=== PATIENT | female | born 1990 | race Caucasian/White ===

== ENCOUNTER 2016-12-30 03:05 | Emergency (ER) | payer MEDICAID ==
[~2016-12-30] VITALS: Ht 170.2 cm; Wt 51.4 kg
[~2016-12-30 03:05] MED LIST: CLON1 PO; PROZ20CA11 PO
[2016-12-30 03:12] VITALS: BP 120/82; PULSE 102; RESP 20; TEMP 97.6; O2SAT 100
--- NOTE | 2016-12-30 03:56 | PD ---
HPI Chief Complaint: Musculoskeletal Complaint Time Seen by Provider: 03:51 Travel History International Travel<30 days: No Contact w/Intl Traveler<30days: No Traveled to known affect area: No History of Present Illness HPI This is a 26-year-old female presents emergency department for evaluation of sternal chest pain started approximately 02:00. Patient states his anxiety but the symptoms seems somewhat worse and she did have some mild shortness of breath. . States the pain gets worse when she takes deep breaths versus 4. States symptoms are moderate in severity. Denies any fever. Denies abdominal pain nausea vomiting diarrhea PFSH Past Medical History Asthma: Yes Anxiety: Yes Depression: Yes Cancer: Yes (OVARIAN, BILATERAL BREAST) Cardiovascular Problems: No Diabetes: No Diminished Hearing: No Endocrine: No Gastrointestinal Disorders: No Genitourinary: No Hepatitis: No Hiatal Hernia: No Hypertension: No Immune Disorder: No Musculoskeletal: Yes (CHRONIC BACK PAIN, PAIN MANAGEMENT) Neurologic: No Psychiatric: No Reproductive: No Respiratory: Yes (asthma) Integumentary: Yes (BENIGN TUMORS REMOVED FROM RIGHT INNER THIGH (06/2015)) Immunizations Current: Yes Seizures: Yes Thyroid Disease: No Ulcer: Yes (GASTRIC) Tetanus Vaccination: < 5 Years Influenza Vaccination: No (ALLERGY) ?: Not Menopausal: Yes : 2 Para: 1 Miscarriage: 1 : 0 Ovarian Cysts: Yes Tubal Ligation: Yes (R OVARY, ) Past Surgical History Abdominal Surgery: Yes (UMB. HERNIA REPAIR CHILD) AICD: No Genitourinary Surgery: Yes Gynecologic Surgery: Yes (HYSTERECTOMY) Hysterectomy: Yes Joint Replacement: No Mastectomy: Yes (BILATERAL) Oral Surgery: Yes (WISDOM TEETH) Pacemaker: No Thoracic Surgery: Yes (BILAT. MASTECTOMY) Other Surgery: Yes (HERNIA) Social History Alcohol Use: No Tobacco Use: Yes (07/24 PPD) Substance Use: No Allergies-Medications (Allergen,Severity, Reaction): Coded Allergies: Flu Vaccine (Verified Allergy, Severe, Anaphylaxis, 12/30/16) Penicillin (Verified Allergy, Severe, ANAPHYLAXIS, 12/30/16) Vicodin (Verified Allergy, Severe, PATIENT STATES THEY ARE NOT ALLERGIC, ) PATIENT STATES THEY ARE NOT ALLERGIC Reported Meds & Prescriptions Reported Meds & Active Scripts Active Reported Prozac (Fluoxetine HCl) 20 Mg Cap 20 Mg PO DAILY Klonopin (Clonazepam) 1 Mg Tab 1 Mg PO BID Review of Systems Except as stated in HPI: all other systems reviewed are Neg Physical Exam Narrative GENERAL: Well-developed well-nourished no apparent distress SKIN: no rash no wound HEAD: Atraumatic. Normocephalic. EYES: Pupils equal and round. No scleral icterus. No injection or drainage. ENT: No nasal bleeding or discharge. Mucous membranes pink and moist. NECK: Trachea midline. No JVD. CARDIOVASCULAR: Regular rhythm. No murmur appreciated. Reproducible chest pain to the middle of the chest. 2+ bilateral equal pulses in all 4 extremity' s. Minimal tachycardic. RESPIRATORY: No accessory muscle use. Clear to auscultation. Breath sounds equal bilaterally. GASTROINTESTINAL: Abdomen soft, non-tender, nondistended. Hepatic and splenic margins not palpable. MUSCULOSKELETAL: No obvious deformities. No clubbing. No cyanosis. No edema. NEUROLOGICAL: Awake and alert. No obvious cranial nerve deficits. Motor grossly within normal limits. Normal speech. PSYCHIATRIC: Appropriate mood and affect; insight and judgment normal. Data Data Last Documented VS Vital Signs Date Time Temp Pulse Resp B/P Pulse Ox O2 Delivery O2 Flow Rate FiO2 12/30/16 05:10 78 16 108/69 100 12/30/16 03:12 97.6 Orders Electrocardiogram (12/30/16 03:51) Complete Blood Count With Diff (12/30/16 03:51) Comprehensive Metabolic Panel (12/30/16 03:51) D-Dimer (12/30/16 03:51) Chest, Single Ap (12/30/16 03:51) Ecg Monitoring (12/30/16 03:51) Iv Access Insert/Monitor (12/30/16 03:51) Oximetry (12/30/16 03:51) Oxygen Administration (12/30/16 03:51) Sodium Chloride 0.9% Flush (Ns Flush) (12/30/16 04:00) Acetamin-Hydrocod 325-5 Mg ([place] 5-325 (12/30/16 04:00) Potassium Chloride (Kcl) (12/30/16 05:00) Labs Laboratory Tests Test 12/30/16 04:05 White Blood Count 8.7 TH/MM3 Red Blood Count 4.61 MIL/MM3 Hemoglobin 14.5 GM/DL Hematocrit 42.5 % Mean Corpuscular Volume 92.0 FL Mean Corpuscular Hemoglobin 31.4 PG Mean Corpuscular Hemoglobin 34.2 % Concent Red Cell Distribution Width 11.5 % Platelet Count 245 TH/MM3 Mean Platelet Volume 8.1 FL Neutrophils (%) (Auto) 59.6 % Lymphocytes (%) (Auto) 31.5 % Monocytes (%) (Auto) 4.1 % Eosinophils (%) (Auto) 1.5 % Basophils (%) (Auto) 3.3 % Neutrophils # (Auto) 5.2 TH/MM3 Lymphocytes # (Auto) 2.7 TH/MM3 Monocytes # (Auto) 0.4 TH/MM3 Eosinophils # (Auto) 0.1 TH/MM3 Basophils # (Auto) 0.3 TH/MM3 CBC Comment DIFF FINAL Differential Comment D-Dimer Quantitative (PE/DVT) 0.25 MG/L FEU Sodium Level 141 MEQ/L Potassium Level 3.1 MEQ/L Chloride Level 107 MEQ/L Carbon Dioxide Level 23.8 MEQ/L Anion Gap 10 MEQ/L Blood Urea Nitrogen 12 MG/DL Creatinine 0.74 MG/DL Estimat Glomerular Filtration 93 ML/MIN Rate Random Glucose 89 MG/DL Calcium Level 9.4 MG/DL Total Bilirubin 0.6 MG/DL Aspartate Amino Transf 16 U/L (AST/SGOT) Alanine Aminotransferase 18 U/L (ALT/SGPT) Alkaline Phosphatase 78 U/L Total Protein 7.4 GM/DL Albumin 4.3 GM/DL [facility] Medical Decision Making Medical Screen Exam Complete: Yes Emergency Medical Condition: Yes Interpretation(s) EKG shows normal sinus rhythm normal axis normal R-wave progression. Rate of 100. Intervals otherwise within normal limits. No concerning ST segment changes. This normal EKG. Differential Diagnosis Anxiety, PE seems unlikely, ACS seems highly unlikely, pneumonia. Narrative Course Patient was roomed emergency department, given pain medicine, initial workup including EKG d-dimer CBC and CMP are reassuring. Discussed with the patient that she seems to be a healthy young lady with panic disorder. No indication that there is part of lung disorder in this patient. She is stable for discharge and follow-up with her primary care physician. Diagnosis Primary Impression: Anxiety Additional Impression: Atypical chest pain Disposition: 01 DISCHARGE HOME Condition: Stable Amrik Ragland MD Dec 30, 2016 03:56
[2016-12-30] MEDS ORDERED: ACETAMINOPHEN/HYDROcodone 325 MG/5 MG TAB PO ONE (04:00)
[2016-12-30] MEDS ORDERED: SODIUM CHLORIDE 0.9% FLUSH 10 ML FLUSH IVF PRN (04:00)
[2016-12-30 04:20] LABS: AUTOMATED NEUTROPHIL # 5.2 TH/MM3 (1.8-7.7); BASOPHIL # 0.3 TH/MM3 (0-0.2); BASOPHIL % 3.3 % (0.0-2.0); EOSINOPHIL # 0.1 TH/MM3 (0-0.4); EOSINOPHIL % 1.5 % (0.0-4.0); HEMATOCRIT 42.5 % (35.0-46.0); HEMO FLAGS DIFF FINAL; LYMPH % 31.5 % (9.0-44.0); LYMPHOCYTE # 2.7 TH/MM3 (1.0-4.8); MEAN CORPUSCULAR HEMOGLOBIN 31.4 PG (27.0-34.0); MEAN CORPUSCULAR HGB CONC 34.2 % (32.0-36.0); MONO % 4.1 % (0.0-8.0); NEUT % 59.6 % (16.0-70.0); PLATELET COUNT 245 TH/MM3 (150-450); RED BLOOD COUNT 4.61 MIL/MM3 (4.00-5.30); RED CELL DISTRIBUTION WIDTH 11.5 % (11.6-17.2); WHITE BLOOD COUNT 8.7 TH/MM3 (4.0-11.0)
[2016-12-30 04:29] LABS: CHLORIDE 107 MEQ/L (98-107); POTASSIUM 3.1 MEQ/L (3.5-5.1); SODIUM (NA) 141 MEQ/L (136-145)
[2016-12-30 04:33] LABS: ANION GAP 10 MEQ/L (5-15); BICARBONATE 23.8 MEQ/L (21.0-32.0); BLOOD UREA NITROGEN 12 MG/DL (7-18)
[2016-12-30 04:36] LABS: ALT (GPT) 18 U/L (10-53); AST (GOT) 16 U/L (15-37); GLOMERULAR FILTRATION RATE 93 ML/MIN (>89)
--- NOTE | 2016-12-30 04:36 | RADHPO ---
EXAM DATE/TIME: 12/30/2016 03:55 [facility] COMPARISON: CHEST SINGLE AP, July 17, 2016, 21:21. INDICATIONS : Chest pain. MEDICAL HISTORY : Chronic obstructive pulmonary disease. Asthma SURGICAL HISTORY : Hysterectomy. Mastectomy, bilateral, Umbilical hernia repair ENCOUNTER: Initial ACUITY: 1 day PAIN SCORE: 9/10 LOCATION: Bilateral chest FINDINGS: 2 AP erect portable views of the chest demonstrates the lungs to be symmetrically aerated without rao dence of mass, infiltrate or effusion. The cardiomediastinal contours are unremarkable. Osseous str uctures are intact. CONCLUSION: No acute disease. Joao Pereira MD on December 30, 2016 at 4:34 Board Certified Radiologist. This report was verified electronically.
[2016-12-30 04:38] LABS: TOTAL BILIRUBIN ADULT 0.6 MG/DL (0.2-1.0)
[2016-12-30 04:39] LABS: ALKALINE PHOSPHATASE 78 U/L (45-117)
[2016-12-30] MEDS ORDERED: POTASSIUM CHLORIDE 20 MEQ CONTROLLED RELEASE TAB PO ONE (05:00)
[2016-12-30 05:10] VITALS: BP 108/69
--- NOTE | 2016-12-31 09:54 | EKG ---
Date Performed: 12/30/2016 Time Performed: 03:21:56 PTAGE: 26 years EKG: --- Warning: Data quality may affect interpretation --- Sinus tachycardia. Lead(s) unsuitab le for analysis: V1 V2 Normal ECG except for rate PREVIOUS TRACING : 07/17/2016 20.26 DOCTOR: Randy Perez Interpretating Date/Time 12/31/2016 09:44:02
== END 2016-12-30 05:13 | disposition home or self-care (01) ==
LOC: PHED 03:05
DX: F41.9 Anxiety disorder, unspecified (principal); R07.89 Other chest pain; F17.200 Nicotine dependence, unspecified, uncomplicated; Z87.09 Personal history of other diseases of the respiratory system; Z86.59 Personal history of other mental and behavioral disorders; Z87.39 Personal history of other diseases of the musculoskeletal system and connective tissue; Z86.69 Personal history of other diseases of the nervous system and sense organs; Z87.19 Personal history of other diseases of the digestive system
CPT/HCPCS: 71010; 80053; 85025; 85379; 93005

== ENCOUNTER 2017-02-21 13:23 | Emergency (ER) | payer MEDICAID ==
[~2017-02-21] VITALS: Ht 167.6 cm; Wt 56.5 kg
[2017-02-21 13:26] VITALS: BP 112/67; PULSE 108; RESP 16; TEMP 98.2; O2SAT 98
--- NOTE | 2017-02-21 13:40 | PD ---
HPI Chief Complaint: Injury Time Seen by Provider: 13:37 Travel History International Travel<30 days: No Contact w/Intl Traveler<30days: No Traveled to known affect area: No History of Present Illness HPI 26-year-old female presents the emergency department with report of spontaneous subluxation laterally of the left patella while bending down to wash her dog earlier today. Patient states it relocated, with sudden onset pain , and effusion. Patient has had similar issues with the right knee in the past. Patient states her pain is now 8 out of 10, and having difficulty ambulating. She denies numbness, tingling, or weakness. Patient is allergic to flu vaccine, penicillin, and Vicodin. PFSH Past Medical History Asthma: Yes Anxiety: Yes Depression: Yes Cancer: Yes (OVARIAN, BILATERAL BREAST) Cardiovascular Problems: No Chemotherapy: No Diabetes: No Diminished Hearing: No Endocrine: No Gastrointestinal Disorders: No Genitourinary: No Hepatitis: No Hiatal Hernia: No Hypertension: No Immune Disorder: No Musculoskeletal: Yes (CHRONIC BACK PAIN, PAIN MANAGEMENT) Neurologic: No Psychiatric: No Reproductive: No Respiratory: Yes (asthma) Integumentary: Yes (BENIGN TUMORS REMOVED FROM RIGHT INNER THIGH (06/2015)) Immunizations Current: Yes Seizures: Yes Thyroid Disease: No Ulcer: Yes (GASTRIC) ?: Not Menopausal: Yes : 2 Para: 1 Miscarriage: 1 : 0 Ovarian Cysts: Yes Tubal Ligation: Yes (R OVARY ) Past Surgical History Abdominal Surgery: Yes (UMB. HERNIA REPAIR CHILD) AICD: No Genitourinary Surgery: Yes Gynecologic Surgery: Yes (HYSTERECTOMY) Hysterectomy: Yes Joint Replacement: No Mastectomy: Yes (BILATERAL) Oral Surgery: Yes (WISDOM TEETH) Pacemaker: No Thoracic Surgery: Yes (BILAT. MASTECTOMY) Other Surgery: Yes (HERNIA) Social History Alcohol Use: No Tobacco Use: Yes (07/24 PPD) Substance Use: No Allergies-Medications (Allergen,Severity, Reaction): Coded Allergies: Flu Vaccine (Verified Allergy, Severe, Anaphylaxis, 02/21/17) Penicillin (Verified Allergy, Severe, ANAPHYLAXIS, 02/21/17) Vicodin (Verified Allergy, Severe, PT DENIES ALLERGY, 02/21/17) Reported Meds & Prescriptions Reported Meds & Active Scripts Active Reported Prozac (Fluoxetine HCl) 20 Mg Cap 20 Mg PO DAILY Klonopin (Clonazepam) 1 Mg Tab 1 Mg PO BID Review of Systems Except as stated in HPI: all other systems reviewed are Neg General / Constitutional: No: Fever Eyes: No: Visual changes HENT: No: Headaches Cardiovascular: No: Chest Pain or Discomfort Respiratory: No: Shortness of Breath Gastrointestinal: No: Abdominal Pain Genitourinary: No: Dysuria Musculoskeletal: Positive: Arthralgias, Limited ROM, Pain Skin: No Rash Neurologic: No: Weakness Psychiatric: No: Depression Endocrine: No: Polydipsia Hematologic/Lymphatic: No: Easy Bruising Physical Exam Narrative GENERAL: Patient appears in mild to moderate distress SKIN: Warm and dry. Normal color. Normal turgor. HEAD: Atraumatic. Normocephalic. EYES: Pupils equal and round. No scleral icterus. No injection or drainage. ENT: No nasal bleeding or discharge. Mucous membranes pink and moist. Pharynx is clear. NECK: Trachea midline. Supple nontender. CARDIOVASCULAR: Regular rate and rhythm. RESPIRATORY: No accessory muscle use. Clear to auscultation. Breath sounds equal bilaterally. MUSCULOSKELETAL: Extremities without clubbing, cyanosis, or edema. Patient has moderate effusion to the left anterior knee is in with history. Patient has left pain with palpation to both medial and lateral joint lines but more on the lateral aspect. Patient has positive ballottement test of the left patella. No obvious deformity or dislocation is noted this time. NEUROLOGICAL: Awake and alert. No obvious cranial nerve deficits. Motor grossly within normal limits. Five out of 5 muscle strength in the arms and legs. Normal speech. PSYCHIATRIC: Appropriate mood and affect; insight and judgment normal. Data Data Last Documented VS Vital Signs Date Time Temp Pulse Resp B/P Pulse Ox O2 Delivery O2 Flow Rate FiO2 02/21/17 13:26 98.2 108 16 112/67 98 Orders Splint Or Brace Apply/Monitor (02/21/17 13:40) Crutches (02/21/17 13:40) Ketorolac Inj (Toradol Inj) (02/21/17 13:45) Knee, Complete (4vws) (02/21/17 13:40) Ice/Cold Pack (02/21/17 13:40) MDM Medical Decision Making Medical Screen Exam Complete: Yes Emergency Medical Condition: Yes Differential Diagnosis Left knee pain. Patellar subluxation. Left knee effusion. Narrative Course X-ray of the left knee is obtained. X-ray shows no acute fracture or dislocation. It does show effusion. Ice is applied to the injured area. Patient is given Toradol 60 mg IM. Patient is placed in knee immobilizer and crutches. Patient will be continued on ibuprofen 600 mg 4 times a day. Patient is to use knee immobilizer and crutches as needed for the next week. Patient should follow-up with her primary care physician or orthopedist as needed. Note for work is given. Diagnosis Primary Impression: Patellar dislocation Qualified Code: S83.005A - Patellar dislocation, left, initial encounter Additional Impression: Effusion of left knee joint Referrals: Primary Care Physician Patient Instructions: Crutch Instructions (ED), General Instructions, Knee Immobilizer (ED), Patellar Dislocation (ED) Departure Forms: Work Release Enter return to work date: Feb 22, 2017 Special Instructions: Patient to use knee immobilizer and crutches for the next 7 days. Additional Instructions: X-ray of the left knee is obtained. X-ray shows no acute fracture or dislocation but does show effusion. Ice is applied to the injured area. Patient is given Toradol 60 mg IM. Patient is placed in knee immobilizer and crutches. Patient will be continued on ibuprofen 600 mg 4 times a day. Patient is to use knee immobilizer and crutches as needed for the next week. Patient should follow-up with her primary care physician or orthopedist as needed. Note for work is given. Med/Other Pt SpecificInfo: Prescription(s) given Disposition: 01 DISCHARGE HOME Condition: Stable Cristiano Amin Feb 21, 2017 13:40
[2017-02-21] MEDS ORDERED: KETOROLAC TROMETHAMINE 60 MG/2 ML (IM) VIAL IM ONE (13:45)
[2017-02-21] MEDS ORDERED: IBUP-232 PO (14:03)
--- NOTE | 2017-02-21 14:15 | RADRPT ---
EXAM DATE/TIME: 02/21/2017 13:47 [facility] COMPARISON: No previous studies available for comparison. INDICATIONS : Left knee pain after kneeling. MEDICAL HISTORY : None. SURGICAL HISTORY : None. ENCOUNTER: Initial ACUITY: 1 day PAIN SCORE: 10/10 LOCATION: Left entire knee FINDINGS: Four view examination of the left knee demonstrates no evidence of fracture or dislocation. Bony min eralization is normal. The articular surfaces are intact. The suprapatellar soft tissues have a nor mal configuration. CONCLUSION: Negative for fracture or dislocation. Follow up in 7-10 days is suggested if symptoms persist. Andres Ruvalcaba MD FACR on February 21, 2017 at 14:13 Board Certified Radiologist. This report was verified electronically.
== END 2017-02-21 14:30 | disposition home or self-care (01) ==
LOC: PHEFT 13:23
DX: S83.012A Lateral subluxation of left patella, initial encounter (principal); F17.210 Nicotine dependence, cigarettes, uncomplicated; X50.1XXA Overexertion from prolonged static or awkward postures, initial encounter; Y93.F1 Activity, caregiving, bathing; Y92.009 Unspecified place in unspecified non-institutional (private) residence as the place of occurrence of the external cause
CPT/HCPCS: 73564; 96372; 99284; E0113; J1885; L1830

== ENCOUNTER 2017-04-23 01:22 | Emergency (ER) | payer MEDICAID ==
[~2017-04-23] VITALS: Ht 167.6 cm; Wt 53.3 kg
[~2017-04-23 01:22] MED LIST changes: +IBUP-232 PO
[2017-04-23 01:32] VITALS: BP 112/80; PULSE 84; RESP 18; TEMP 97.7; O2SAT 100
[2017-04-23 01:59] VITALS: BP_SYST 110; BP_SYST 112; BP_DIAS 76; BP_DIAS 80; PULSE 79
[2017-04-23 02:00] VITALS: RESP 18; O2SAT 98
[2017-04-23] MEDS ORDERED: SODIUM CHLORIDE 0.9% FLUSH 10 ML FLUSH IVF PRN (02:00)
[2017-04-23 02:05] LABS: AUTOMATED NEUTROPHIL # 4.6 TH/MM3 (1.8-7.7); BASOPHIL # 0.2 TH/MM3 (0-0.2); EOSINOPHIL # 0.2 TH/MM3 (0-0.4); HEMATOCRIT 44.7 % (35.0-46.0); HEMO FLAGS DIFF FINAL; LYMPH % 33.2 % (9.0-44.0); LYMPHOCYTE # 2.8 TH/MM3 (1.0-4.8); MEAN CELL VOLUME 94.4 FL (80.0-100.0); MEAN CORPUSCULAR HEMOGLOBIN 31.9 PG (27.0-34.0); MEAN CORPUSCULAR HGB CONC 33.8 % (32.0-36.0); MONO % 5.7 % (0.0-8.0); NEUT % 55.1 % (16.0-70.0); PLATELET COUNT 216 TH/MM3 (150-450); RED BLOOD COUNT 4.73 MIL/MM3 (4.00-5.30); RED CELL DISTRIBUTION WIDTH 12.4 % (11.6-17.2); WHITE BLOOD COUNT 8.3 TH/MM3 (4.0-11.0)
[2017-04-23 02:11] LABS: CHLORIDE 104 MEQ/L (98-107); POTASSIUM 3.9 MEQ/L (3.5-5.1); SODIUM (NA) 139 MEQ/L (136-145)
[2017-04-23 02:14] LABS: ANION GAP 7 MEQ/L (5-15); BICARBONATE 28.1 MEQ/L (21.0-32.0); BLOOD UREA NITROGEN 15 MG/DL (7-18); MAGNESIUM 2.1 MG/DL (1.5-2.5)
--- NOTE | 2017-04-23 02:15 | PD ---
HPI Chief Complaint: Chest Pain Time Seen by Provider: 01:42 Travel History International Travel<30 days: No Contact w/Intl Traveler<30days: No Traveled to known affect area: No History of Present Illness HPI The patient is a 26-year-old female with no known history of heart disease who complains of a sharp chest pain on the left anterior chest for 40 minutes prior to her coming in. She does have a history of anxiety and is a fairly frequent visitor to this emergency department. She does smoke one third pack a day. She does have a history of breast cancer. She apparently has had bilateral mastectomy. She has also had a hysterectomy and cannot be . She has a history of both breast and ovarian cancer and is followed by Dr. Flores for these. She states she gets checked every 6 months for these. She denies any shortness of breath. PFSH Past Medical History Asthma: Yes Anxiety: Yes Depression: Yes Cancer: Yes (OVARIAN, BILATERAL BREAST) Cardiovascular Problems: No Chemotherapy: No Diabetes: No Diminished Hearing: No Endocrine: No Gastrointestinal Disorders: No Genitourinary: No Hepatitis: No Hiatal Hernia: No Hypertension: No Immune Disorder: No Medical other: No Musculoskeletal: Yes (CHRONIC BACK PAIN, PAIN MANAGEMENT) Neurologic: No Psychiatric: No Reproductive: No Respiratory: Yes (asthma) Integumentary: Yes (BENIGN TUMORS REMOVED FROM RIGHT INNER THIGH (06/2015)) Immunizations Current: Yes Seizures: Yes Thyroid Disease: No Ulcer: Yes (GASTRIC) Tetanus Vaccination: > 5 Years Influenza Vaccination: Yes ?: Not Menopausal: Yes : 2 Para: 1 Miscarriage: 1 : 0 Ovarian Cysts: Yes Tubal Ligation: Yes (R OVARY ) Past Surgical History Abdominal Surgery: Yes (UMB. HERNIA REPAIR CHILD) AICD: No Genitourinary Surgery: Yes Gynecologic Surgery: Yes (HYSTERECTOMY) Hysterectomy: Yes Joint Replacement: No Mastectomy: Yes (BILATERAL) Oral Surgery: Yes (WISDOM TEETH) Pacemaker: No Thoracic Surgery: Yes (BILAT. MASTECTOMY) Other Surgery: Yes (HERNIA) Social History Alcohol Use: No Tobacco Use: Yes (07/24 PPD) Substance Use: No Allergies-Medications (Allergen,Severity, Reaction): Coded Allergies: Influenza Virus Vaccines (Unverified Allergy, Severe, Anaphylaxis, 04/23/17 ) acetaminophen (Unverified Allergy, Severe, PT DENIES ALLERGY, 04/23/17) hydrocodone (Unverified Allergy, Severe, PT DENIES ALLERGY, 04/23/17) penicillin G (Unverified Allergy, Severe, ANAPHYLAXIS, 04/23/17) Reported Meds & Prescriptions Reported Meds & Active Scripts Active Review of Systems Except as stated in HPI: all other systems reviewed are Neg Physical Exam Narrative GENERAL: The patient is alert, oriented 3 and slight apparent distress with her chest pain. Her vital signs are normal. SKIN: Focused skin assessment warm/dry. HEAD: Atraumatic. Normocephalic. EYES: Pupils equal and round. No scleral icterus. No injection or drainage. ENT: No nasal bleeding or discharge. Mucous membranes pink and moist. NECK: Trachea midline. No JVD. CARDIOVASCULAR: Regular rate and rhythm. No murmur appreciated. The chest wall is tender where the patient perceives her pain but she states this is a "different" pain. RESPIRATORY: No accessory muscle use. Clear to auscultation. Breath sounds equal bilaterally. GASTROINTESTINAL: Abdomen soft, non-tender, nondistended. Hepatic and splenic margins not palpable. MUSCULOSKELETAL: No obvious deformities. No clubbing. No cyanosis. No edema. NEUROLOGICAL: Awake and alert. No obvious cranial nerve deficits. Motor grossly within normal limits. Normal speech. PSYCHIATRIC: ; insight and judgment normal. The patient appears somewhat depressed and anxious Data Data Last Documented VS Vital Signs Date Time Temp Pulse Resp B/P (MAP) Pulse Ox O2 Delivery O2 Flow Rate FiO2 04/23/17 02:00 18 98 Room Air 04/23/17 01:59 79 04/23/17 01:32 97.7 Orders Orders Electrocardiogram (04/23/17 01:52) Basic Metabolic Panel (Bmp) (04/23/17 01:52) Complete Blood Count With Diff (04/23/17 01:52) D-Dimer (04/23/17 01:52) Magnesium (Mg) (04/23/17 01:52) Troponin I (04/23/17 01:52) Ecg Monitoring (04/23/17 01:52) Bilateral Bp Monitoring (04/23/17 01:52) Iv Access Insert/Monitor (04/23/17 01:52) Oximetry (04/23/17 01:52) Oxygen Administration (04/23/17 01:52) Sodium Chloride 0.9% Flush (Ns Flush) (04/23/17 02:00) Chest, Pa & Lat (04/23/17 01:52) Labs Laboratory Tests Test 04/23/17 01:55 White Blood Count 8.3 TH/MM3 Red Blood Count 4.73 MIL/MM3 Hemoglobin 15.1 GM/DL Hematocrit 44.7 % Mean Corpuscular Volume 94.4 FL Mean Corpuscular Hemoglobin 31.9 PG Mean Corpuscular Hemoglobin Concent 33.8 % Red Cell Distribution Width 12.4 % Platelet Count 216 TH/MM3 Mean Platelet Volume 8.3 FL Neutrophils (%) (Auto) 55.1 % Lymphocytes (%) (Auto) 33.2 % Monocytes (%) (Auto) 5.7 % Eosinophils (%) (Auto) 3.0 % Basophils (%) (Auto) 3.0 % Neutrophils # (Auto) 4.6 TH/MM3 Lymphocytes # (Auto) 2.8 TH/MM3 Monocytes # (Auto) 0.5 TH/MM3 Eosinophils # (Auto) 0.2 TH/MM3 Basophils # (Auto) 0.2 TH/MM3 CBC Comment DIFF FINAL Differential Comment Blood Urea Nitrogen 15 MG/DL Creatinine 0.62 MG/DL Random Glucose 95 MG/DL Calcium Level 8.9 MG/DL Magnesium Level 2.1 MG/DL Sodium Level 139 MEQ/L Potassium Level 3.9 MEQ/L Chloride Level 104 MEQ/L Carbon Dioxide Level 28.1 MEQ/L Anion Gap 7 MEQ/L Estimat Glomerular Filtration Rate 115 ML/MIN Troponin I LESS THAN 0.02 NG/ML MDM Medical Decision Making Medical Screen Exam Complete: Yes Emergency Medical Condition: Yes Medical Record Reviewed: Yes Interpretation(s) The EKG shows incomplete right moment branch block but is otherwise normal with normal sinus rhythm rate of 79. There is no significant change from an EKG taken on December of this year. The CBC is normal and the basic metabolic profile is normal. Troponin is normal. The chest x-ray shows no acute disease. Differential Diagnosis Musculoskeletal pain, pleuritic pain, acute coronary syndrome-unlikely, pneumothorax-unlikely, electrolyte disorder, renal insufficiency, anemia, pericarditis , atypical chest pain Narrative Course The patient has atypical chest pain. This does not appear to be cardiac in is most likely musculoskeletal. She will be given ibuprofen 600 mg 3 times daily. She needs to follow-up with her primary care physician this week. Diagnosis Primary Impression: Atypical chest pain Additional Instructions: Ibuprofen will likely reduce the pain if you take it regularly. This appears to be primarily musculoskeletal pain. This does not appear to be heart pain. Follow-up with your primary care physician this week or early next week. Also, as we discussed, discontinue smoking. Med/Other Pt SpecificInfo: Prescription(s) given Scripts Ibuprofen (Ibuprofen) 600 Mg Tab 600 MG PO TID, #33 TAB 0 Refills Prov: Geoff Smyth MD 04/23/17 Disposition: 01 DISCHARGE HOME Condition: Stable Geoff Smyth MD Apr 23, 2017 02:15
[2017-04-23 02:17] LABS: GLOMERULAR FILTRATION RATE 115 ML/MIN (>89)
--- NOTE | 2017-04-23 02:27 | RADRPT ---
EXAM DATE/TIME: 04/23/2017 01:57 [facility] COMPARISON: CHEST SINGLE AP, December 30, 2016, 3:55. INDICATIONS : Chest pain. MEDICAL HISTORY : Carcinoma, breast. Asthma. SURGICAL HISTORY : Mastectomy, bilateral. ENCOUNTER: Initial ACUITY: 1 day PAIN SCORE: 4/10 LOCATION: chest Substernal. FINDINGS: PA and lateral views of the chest demonstrate the lungs to be symmetrically aerated without evidence of mass, infiltrate or effusion. The cardiomediastinal contours are unremarkable. Osseous structure s are intact. CONCLUSION: No evidence of acute cardiopulmonary disease. Cliff Jade MD on April 23, 2017 at 2:25 Board Certified Radiologist. This report was verified electronically.
[2017-04-23] MEDS ORDERED: IBUP-232 PO (02:32)
[2017-04-23] MEDS ORDERED: KETOROLAC TROMETHAMINE 60 MG/2 ML (IM) VIAL IVP ONE (02:45)
[2017-04-23 03:05] VITALS: BP 120/70; PULSE 78; RESP 18; O2SAT 98
--- NOTE | 2017-04-23 19:25 | EKG ---
Date Performed: 04/23/2017 Time Performed: 01:37:39 PTAGE: 26 years EKG: Sinus rhythm INCOMPLETE RIGHT BUNDLE BRANCH BLOCK MODERATE ST DEPRESSION ABNORMAL ECG PREVIOUS TRACING : 12/30/2016 03.21 Compared to prior tracing no significant change DOCTOR: Oh Almendarez Interpretating Date/Time 04/23/2017 19:22:58
== END 2017-04-23 03:09 | disposition home or self-care (01) ==
LOC: PHED 01:22
DX: R07.89 Other chest pain (principal); F17.210 Nicotine dependence, cigarettes, uncomplicated; J45.909 Unspecified asthma, uncomplicated; Z85.43 Personal history of malignant neoplasm of ovary; Z90.710 Acquired absence of both cervix and uterus; Z90.13 Acquired absence of bilateral breasts and nipples; Z85.3 Personal history of malignant neoplasm of breast
CPT/HCPCS: 71020; 80048; 83735; 84484; 85025; 85379; 93005; 96374; 99285; J1885